=== PATIENT | female | born 1970 | race Caucasian/White ===

== ENCOUNTER 2019-02-17 05:45 | Inpatient (IN) | payer OTHER ==
[~2019-02-17] VITALS: Ht 167.6 cm; Wt 59.3 kg
[2019-02-17] VITALS (26 sets, daily range): BP systolic 90–127; BP diastolic 48–73; PULSE 63–110; RESP 11–22; Ht 167.6 cm; Wt 59.3 kg
[2019-02-17] MEDS ORDERED: LACTATED RINGER'S 1,000 ML IV* ONE (06:00)
[2019-02-17] MEDS ORDERED: GELATIN SIZE 100 SPONGE ONE (06:50)
[2019-02-17] MEDS ORDERED: THROMBIN (BOVINE) 5,000 UNIT VIAL TP ONE (06:50)
[2019-02-17] MEDS ORDERED: BUPIVACAINE 0.5%/EPI (SDV) 30 ML INJ ONE (06:50)
[2019-02-17] MEDS ORDERED: POLYMYXIN/BACITRACIN 1L IRRIG ONE ×2 (06:50→06:59)
[2019-02-17] MEDS ORDERED: HYDR-3027 PO (06:51)
[2019-02-17] MEDS ORDERED: ROCURONIUM 50 MG INJ ONE (07:00)
--- NOTE | 2019-02-17 07:13 | HPN ---
Date/Time of Note Date/Time of Note DATE: 02/17/19 TIME: 07:12 Interval H&P Admission Note Pt. seen H&P reviewed: No system changes JESSICA DIXON MD Feb 17, 2019 07:13
--- NOTE | 2019-02-17 07:28 | PREAC ---
Date/Time of Note Date/Time of Note DATE: 02/17/19 TIME: 07:22 Anesthesia Eval and Record Evaluation Time Pre-Procedure Interview DATE: 02/17/19 TIME: 07:22 Age 48 Sex female NPO: 8 hrs Preoperative diagnosis L2-L3 degenerative Disc Planned procedure L2-L3 Decompression and Discectomy Past Medical History Past Medical History: None Surgery & Anesthesia Issues No known issue Meds Anticoagulation: No Beta Xin within 24 hr: No Reason Beta Xin not given: Pt. not on B-Xin Reported Medications Hydrocodone Bit/Acetaminophen (Vicodin HP 10-300) 1 Each Tablet, 1 TAB PO Q4H PRN for PAIN, TAB 02/17/19 Meds reviewed: Yes Allergies Coded Allergies: No Known Allergy (Unverified , 02/17/19) Allergies Reviewed: Yes Labs/Studies Labs Reviewed: Reviewed by anesthesiologist test: Negative Studies: ECG Pre-procedure Exam Last vitals Vital Signs Date Temp Pulse Resp B/P (MAP) Pulse Ox O2 O2 Flow FiO2 Time Delivery Rate 02/17/19 98.5 63 16 95/56 (69) 97 Room Air 05:30 Airway: Adequate mouth opening, Adequate thyromental dist Mallampati: Mallampati II Teeth: Normal Lung: Normal Heart: Normal ASA Physical Status ASA physical status: 2 Emergency: None Planned Anesthetic General/MAC: ETT Planned Pain Management Parenteral pain med Pre-operative Attestations Prior to commencing anesthesia and surgery, the patient was re-evaluated, there was verification of: *The patient's identity *The results of appropriate recent lab work and preoperative vital signs *The above evaluation not changing prior to induction *Anesthetic plan, risk benefits, alternative and complications discussed with patient/family; questions answered; patient/family understands, accepts and wishes to proceed. JENNIFER PEREZ MD Feb 17, 2019 07:28
[2019-02-17] MEDS ORDERED: MIDAZOLAM 1 MG/ML 2 ML INJ ONE (07:33)
[2019-02-17] MEDS ORDERED: CEFAZOLIN 2 GM/50 ML (PMX) 50 ML IVPB ONE (08:00)
[2019-02-17] MEDS ORDERED: POLYMYXIN/BACITRACIN 1L IRRIG IRR ONE (08:19)
[2019-02-17] MEDS ORDERED: FENTAnyl 50 MCG/ML VIAL ONE (09:06)
[2019-02-17] MEDS ORDERED: hydrALAzine 20 MG INJ ONE (09:18)
[2019-02-17] MEDS ORDERED: HEMOSTATIC MATRIX SYG ZFS ONE (09:28)
[2019-02-17] MEDS ORDERED: morphine 10 MG INJ ONE (09:42)
[2019-02-17] MEDS ORDERED: ONDANSETRON 4 MG INJ ONE (10:17)
[2019-02-17] MEDS ORDERED: METOCLOPRAMIDE 10 MG INJ ONE (10:17)
[2019-02-17] MEDS ORDERED: LIDOCAINE 2% (SDV) 5 ML INJ ONE (10:25)
[2019-02-17] MEDS ORDERED: NEOSTIGMINE 10 MG INJ ONE (10:25)
[2019-02-17] MEDS ORDERED: GLYCOPYRROLATE 0.4 MG INJ ONE (10:25)
[2019-02-17] MEDS ORDERED: PROPOFOL 20 ML ONE (10:25)
[2019-02-17] MEDS ORDERED: CEFAZOLIN 1 GM INJ ONE (10:26)
[2019-02-17] MEDS ORDERED: MEPERIDINE 100 MG INJ ONE (10:49)
[2019-02-17] MEDS ORDERED: NALOXONE (0.4 MG/ML) INJ IV PRN (11:00)
[2019-02-17] MEDS ORDERED: METOCLOPRAMIDE 10 MG INJ IV PRN (11:00)
[2019-02-17] MEDS ORDERED: FENTAnyl 50 MCG/ML VIAL IV PRN (11:00)
[2019-02-17] MEDS ORDERED: NACL 0.9% 3 ML SYG IV SCH (11:00)
[2019-02-17] MEDS ORDERED: HYDROmorphONE 1 MG/5 ML IV SYRINGE IV PRN ×2 (11:00)
[2019-02-17] MEDS ORDERED: ACETAMINOPHEN 325 MG TAB PO PRN (11:00)
[2019-02-17] MEDS ORDERED: DIPHENHYDRAMINE 50 MG INJ IV PRN (11:00)
[2019-02-17] MEDS ORDERED: PROCHLORPERAZINE 10 MG TAB PO PRN (11:00)
[2019-02-17] MEDS ORDERED: MEPERIDINE 25 MG INJ IV PRN (11:00)
[2019-02-17] MEDS ORDERED: HYDROCODONE/APAP (5/325) TAB PO PRN (11:00)
[2019-02-17] MEDS ORDERED: LABETALOL HCL 20MG INJ IV PRN (11:00)
[2019-02-17] MEDS ORDERED: ONDANSETRON 4 MG INJ IV PRN (11:00)
--- NOTE | 2019-02-17 11:01 | PAC ---
Date/Time of Note Date/Time of Note DATE: 02/17/19 TIME: 11:01 Post-Anesthesia Notes Post-Anesthesia Note Last documented vital signs Vital Signs Date Temp Pulse Resp B/P (MAP) Pulse Ox O2 O2 Flow FiO2 Time Delivery Rate 02/17/19 98.8 11:00 02/17/19 63 16 95/56 (69) 97 Room Air 05:30 Activity: WNL Respiratory function: WNL Cardiovascular function: WNL Mental status: Baseline Pain reasonably controlled: Yes Hydration appropriate: Yes Nausea/Vomiting absent: Yes Comments BP:1134/67, P:98, Spo2:100%, T:98,8 JENNIFER PEREZ MD Feb 17, 2019 11:01
--- NOTE | 2019-02-17 11:02 | OPR ---
Date/Time of Note Date/Time of Note DATE: 02/17/19 TIME: 10:55 Operative Report Free Text/Dictation DATE OF OPERATION: 02/17/2019 PREOPERATIVE DIAGNOSES: 1. L2-3 biltaeral spinal stenosis with neurogenic claudication 2. L2-3 right paracentral herniated nucleus pulposus with L3 radiculopathy 3.Prior history of L3-L5 decompression with instrumented fusion POSTOPERATIVE DIAGNOSES: 1. L2-3 biltaeral spinal stenosis with neurogenic claudication 2. L2-3 right paracentral herniated nucleus pulposus with L3 radiculopathy 3.Prior history of L3-L5 decompression with instrumented fusion OPERATION PERFORMED: 1. L2-3 bilateral laminectomy, medial facetectomy, and foraminotomyL 2. L2-3 Right sided microdiskectomy SURGEON: Jessica Dixon MD ANESTHESIA: General endotracheal ESTIMATED BLOOD LOSS: 35 mL SURGICAL INDICATION: The patient is a 48 year-old female who presents with a chronic history of worsening bilateral lower extremity pain. The patient was unable to ambulate significant distances secondary to their pain. Risks, benefits, and alternatives to a decompressive procedure including but not exclusive of risks of bleeding, infection, nerve injury, cauda equina syndrome, iatrogenic instability, dural tear, myocardial infarction, stroke, pulmonary embolism were explained to the patient, and he wished to proceed. She has a prior history of prior L3-L5 laminectomy with instrumented fusion. DESCRIPTION OF TECHNIQUE: The patient was identified in the preoperative area and taken to the operating room. Rapid induction of general endotracheal anesthesia was performed. Patient was given 2 g of cefazolin for prophylaxis. The patient was then placed in the prone position on the Scar table on top of a Donte frame with all bony prominences well padded. The back was prepped and draped in usual sterile manner. Using a spinal needle and intraoperative fluoroscopy, the L2-3 level was clearly identified. The skin was injected using 0.5% Marcaine with epinephrine. Longitudinal midline incision was then created using a 10 blade. Further dissection through soft tissue was performed using electrocautery down to the spinous processes bilaterally. Dissection was taken down the bilateral lamina and over the facet joint capsule. A self-retaining retractor was applied. Again, intraoperative fluoroscopy confirmed the level. A rongeur was used to remove a portion of the L2 spinous process and the interspinous ligaments. We identified the interlaminar window. The microscope was brought into use for microdissection. The high-speed bur was used to thin the L2 lamina. Kerrison rongeurs were then used to resect a the lamina, and a portion of the bilateral medial facets and the bone overlying the foramens. Ligamentum flavum was also resected using the Kerrison rongeurs. Care was taken to protect the thecal sac throughout the decompressive procedure. Attention was then placed on the Right L2-3 microdiskectomy. A nerve root retractor was placed lateral to the right L3 nerve root. The dura and nerve root were gently retracted medially. The extruded fragment was noted. A 15 blade was used to incise the pseudoannulus. The extruded fragment was identified and the disc material was removed to a stable base. Palpation with a ball-tip probe did not reveal any further stenosis in the central, subarticular, or foraminal areas. The bilateral L2 and L3 pedicles were palpated using a torey to ensure a pedicle to pedicle decompression. The exiting L2 nerve root and traversing L3 nerve roots were both directly visualized and noted to be decompressed. The cephalad and caudad extent of the decompression were also confirmed using ball- tip probes and intraoperative fluoroscopy. This procedure took 45 minutes longer than usual due to the scar tissue tissue at the operative site from prior L3-L5 laminectomy with instrumented fusion. The wound was irrigated copiously using normal saline. Meticulous attention was paid toward hemostasis using bipolar cautery, FloSeal and thrombin. Care was taken to remove all FloSeal prior to wound closure. A medium hemovac was placed. The fascia was then closed using 0 Vicryl in interrupted fashion. Subcutaneous tissue was closed using 2-0 Vicryl in interrupted fashion. Skin was closed using a running 4-0 Monocryl stitch. The wound was dressed using Dermabond, sterile gauze and Tegaderm. The patient was returned to the supine position. They were extubated immediately postoperatively and taken to the recovery room in stable condition. Procedure Date: Feb 17, 2019 Preoperative Diagnosis 1. L2-3 biltaeral spinal stenosis with neurogenic claudication 2. L2-3 right paracentral herniated nucleus pulposus with L3 radiculopathy 3.Prior history of L3-L5 decompression with instrumented fusion Postoperative Diagnosis 1. L2-3 biltaeral spinal stenosis with neurogenic claudication 2. L2-3 right paracentral herniated nucleus pulposus with L3 radiculopathy 3.Prior history of L3-L5 decompression with instrumented fusion Operation/Procedure Performed 1. L2-3 bilateral laminectomy, medial facetectomy, and foraminotomyL 2. L2-3 Right sided microdiskectomy Surgeon see signature line It Field Technician None Anesthesia Type: general Estimated Blood Loss: 10 - 50 ml's Transfusion none Specimen L2-3 disk Grafts/Implants none Complications none Pt Condition Post Procedure: stable Procedure Description DESCRIPTION OF TECHNIQUE: The patient was identified in the preoperative area and taken to the operating room. Rapid induction of general endotracheal anesthesia was performed. Patient was given 2 g of cefazolin for prophylaxis. The patient was then placed in the prone position on the Scar table on top of a Donte frame with all bony prominences well padded. The back was prepped and draped in usual sterile manner. Using a spinal needle and intraoperative fluoroscopy, the L2-3 level was clearly identified. The skin was injected using 0.5% Marcaine with epinephrine. Longitudinal midline incision was then created using a 10 blade. Further dissection through soft tissue was performed using electrocautery down to the spinous processes bilaterally. Dissection was taken down the bilateral lamina and over the facet joint capsule. A self-retaining retractor was applied. Again, intraoperative fluoroscopy confirmed the level. A rongeur was used to remove a portion of the L2 spinous process and the interspinous ligaments. We identified the interlaminar window. The microscope was brought into use for microdissection. The high-speed bur was used to thin the L2 lamina. Kerrison rongeurs were then used to resect a the lamina, and a portion of the bilateral medial facets and the bone overlying the foramens. Ligamentum flavum was also resected using the Kerrison rongeurs. Care was taken to protect the thecal sac throughout the decompressive procedure. Attention was then placed on the Right L2-3 microdiskectomy. A nerve root retractor was placed lateral to the right L3 nerve root. The dura and nerve root were gently retracted medially. The extruded fragment was noted. A 15 blade was used to incise the pseudoannulus. The extruded fragment was identified and the disc material was removed to a stable base. Palpation with a ball-tip probe did not reveal any further stenosis in the central, subarticular, or foraminal areas. The bilateral L2 and L3 pedicles were palpated using a torey to ensure a pedicle to pedicle decompression. The exiting L2 nerve root and traversing L3 nerve roots were both directly visualized and noted to be decompressed. The cephalad and caudad extent of the decompression were also confirmed using ball- tip probes and intraoperative fluoroscopy. This procedure took 45 minutes longer than usual due to the scar tissue tissue at the operative site from prior L3-L5 laminectomy with instrumented fusion. The wound was irrigated copiously using normal saline. Meticulous attention was paid toward hemostasis using bipolar cautery, FloSeal and thrombin. Care was taken to remove all FloSeal prior to wound closure. A medium hemovac was placed. The fascia was then closed using 0 Vicryl in interrupted fashion. Subcutaneous tissue was closed using 2-0 Vicryl in interrupted fashion. Skin was closed using a running 4-0 Monocryl stitch. The wound was dressed using Dermabond, sterile gauze and Tegaderm. The patient was returned to the supine position. They were extubated immediately postoperatively and taken to the recovery room in stable condition. JESSICA DIXON MD Feb 17, 2019 11:02
[2019-02-17] MEDS: HYDROmorphONE 0.5 MG/0.5 ML SYG IV PRN ×4 (12:26→21:31)
[2019-02-17] MEDS: CEFAZOLIN 1 GM/50 ML (PMX) 50 ML IVPB SCH ×3 (12:26→23:46)
--- NOTE | 2019-02-17 13:31 | CONS ---
Assessment/Plan Assessment/Plan Problems: (1) S/P lumbar microdiscectomy Onset Date: ~ 02/17/2019 Status: Acute Comment: Intraoperatively doing well at this time. Continue with routine postoperative care. Expect good rehabilitation potential in this very young woman (2) S/P lumbar laminectomy Onset Date: ~ 02/17/2019 Status: Acute Comment: As above. (3) Chronic pain syndrome Status: Chronic Comment: Please note that she had previously been tried on gabapentin which was not successful for her. Her home medications have been Vicodin and Flexeril and ibuprofen she has been off the ibuprofen for a week and she has been out of the Flexeril Consultation Date/Type/Reason Admit Date/Time Feb 17, 2019 at 05:45 Date of Consultation: Feb 17, 2019 Type of Consult Internal medicine Reason for Consultation Postoperative assistance after left lumbar spine microdiscectomy and bilateral laminectomy Requesting Provider: JESSICA DIXON MD Date/Time of Note DATE: 02/17/19 TIME: 13:26 Hx of Present Illness Pleasant 48-year-old right-handed [place] born female admitted for back surgery. She has had a total of 4 prior surgeries which includes 1 hardware removal. She has history of chronic low back pain. She is seen postoperatively on the floor reports that this was the best of all of her surgeries in terms of comfort. Constitutional: no complaints (No fevers chills or sweats) Eyes: no complaints ENT: no complaints Respiratory: no complaints Cardiovascular: no complaints Gastrointestinal: no complaints Genitourinary: no complaints Musculoskeletal: back pain Skin: no complaints Neurologic: other (Bilateral sciatica preop) Past Medical History Medical History: other (Osteoarthritis of the lumbar spine; cervical spine disease) Home Meds Reported Medications Hydrocodone Bit/Acetaminophen (Vicodin HP 10-300) 1 Each Tablet, 1 TAB PO Q4H PRN for PAIN, TAB 02/17/19 Medications Home medications-Vicodin as needed; Flexeril as needed ibuprofen as needed Current Medications Acetaminophen/ Hydrocodone Bitart ([place] (5/325)) 1 tab Q4H PRN PO .PAIN 1-5; Start 02/17/19 at 11:00 Acetaminophen/ Hydrocodone Bitart ([place] (5/325)) 2 tab Q4H PRN PO .PAIN 6-10; Start 02/17/19 at 11:00 Cefazolin Sodium 50 ml @ 100 mls/hr Q6 IVPB Last administered on 02/17/19at 12:26; Admin Dose 100 MLS/HR; Start 02/17/19 at 12:00; Stop 02/18/19 at 06:29 Prochlorperazine (Compazine) 10 mg Q4H PRN PO NAUSEA/VOMITING; Start 02/17/19 at 11:00 Ondansetron HCl (Zofran Inj) 4 mg Q6H PRN IV NAUSEA/VOMITING; Start 02/17/19 at 11:00 Al Hydrox/Mg Hydrox/Simethicone (Mag-Al Plus) 15 ml Q4H PRN PO .CONSTIPATION; Start 02/17/19 at 11:00 Docusate Sodium (Colace) 100 mg BID PO ; Start 02/18/19 at 09:00 Acetaminophen (Tylenol Tab) 650 mg Q4H PRN PO TEMP GREATER THAN 101F OR YOUNG; Start 02/17/19 at 11:00 IV Flush (NS 3 ml) 3 ml PER PROTOCOL IV ; Start 02/17/19 at 11:00 Naloxone HCl (Narcan) 0.2 mg Q2M PRN IV RR 8 BREATHS/MIN OR LESS; Start 02/17/19 at 11:00 Hydromorphone HCl (Dilaudid) 0.5 mg Q3H PRN IV SEVERE PAIN LEVEL 7-10 Last administered on 02/17/19at 12:26; Admin Dose 0.5 MG; Start 02/17/19 at 11:00 Hydromorphone HCl (Dilaudid) 0.2 mg PACU PRN IV MILD PAIN 1-3; Start 02/17/19 at 11:00; Stop 02/17/19 at 15:00 Hydromorphone HCl (Dilaudid) 0.4 mg PACU PRN IV MOD PAIN 4-6; Start 02/17/19 at 11:00; Stop 02/17/19 at 15:00 Fentanyl (Sublimaze) 25 mcg PACU ORDER PRN IV MILD PAIN 1-3; Start 02/17/19 at 11:00; Stop 02/17/19 at 15:00 Ondansetron HCl (Zofran Inj) 4 mg PACU ORDER PRN IV NAUSEA/VOMITING; Start 02/17/19 at 11:00; Stop 02/17/19 at 15:00 Metoclopramide HCl (Reglan) 10 mg PACU ORDER PRN IV NAUSEA/VOMITING; Start 02/17/19 at 11:00; Stop 02/17/19 at 15:00 Labetalol HCl (Labetalol) 5 mg PACU ORDER PRN IV HIGH BLOOD PRESSURE; Start 02/17/19 at 11:00; Stop 02/17/19 at 15:00 Meperidine HCl (Demerol) 25 mg PACU ORDER PRN IV .RIGORS; Start 02/17/19 at 11:00; Stop 02/17/19 at 15:00 Diphenhydramine HCl (Benadryl) 25 mg PACU ORDER PRN IV .PRURITUS; Start 02/17/19 at 11:00; Stop 02/17/19 at 15:00 Allergies: Coded Allergies: No Known Allergy (Unverified , 02/17/19) Past Surgical History Past Surgical Hx: other (Status post hysterectomy; status post vocal cord polypectomy; status post lumbar spine fusion x2; status post hardware removal from lumbar spine; status post silicone breast augmentation bilaterally) Family History Significant Family History: no pertinent family hx Social History Born in [facility] and raised there. Has lived in [facility] for several decades. 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 Alcohol Use: occasionally (Red wine consumption on a daily basis) Smoking Status: Former smoker (Quit smoking 7 months ago) Drug Use: none Exam/Review of Systems Exam Vitals Vital Signs Date Temp Pulse Resp B/P (MAP) Pulse Ox O2 O2 Flow FiO2 Time Delivery Rate 02/17/19 97.1 74 18 95/51 (66) 100 12:26 02/17/19 Nasal 2.0 12:01 Cannula Constitutional: alert, oriented Head: normocephalic, atraumatic Eyes: nl conjunctiva, EOMI, nl lids, nl sclera, PERRL ENMT: nl external ears & nose, nl lips & teeth, nl nasal mucosa & septum, mucosa pink and moist Neck: supple, non-tender Respiratory: clear to auscultation, normal air movement Cardiovascular: regular rate and rhythm, nl pulses Gastrointestinal: soft, nl liver, spleen, non-tender Extremities: normal pulses Neurological: 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 intact, nl mental status, nl speech, nl strength, other (Moving her feet without issue) Skin: nl turgor, rash or lesions Medications Medication Current Medications Acetaminophen/ Hydrocodone Bitart ([place]land (5/325)) 1 tab Q4H PRN PO .PAIN 1-5; Start 02/17/19 at 11:00 Acetaminophen/ Hydrocodone Bitart ([place] (5/325)) 2 tab Q4H PRN PO .PAIN 6-10; Start 02/17/19 at 11:00 Cefazolin Sodium 50 ml @ 100 mls/hr Q6 IVPB Last administered on 02/17/19at 12:26; Admin Dose 100 MLS/HR; Start 02/17/19 at 12:00; Stop 02/18/19 at 06:29 Prochlorperazine (Compazine) 10 mg Q4H PRN PO NAUSEA/VOMITING; Start 02/17/19 at 11:00 Ondansetron HCl (Zofran Inj) 4 mg Q6H PRN IV NAUSEA/VOMITING; Start 02/17/19 at 11:00 Al Hydrox/Mg Hydrox/Simethicone (Mag-Al Plus) 15 ml Q4H PRN PO .CONSTIPATION; Start 02/17/19 at 11:00 Docusate Sodium (Colace) 100 mg BID PO ; Start 02/18/19 at 09:00 Acetaminophen (Tylenol Tab) 650 mg Q4H PRN PO TEMP GREATER THAN 101F OR YOUNG; Start 02/17/19 at 11:00 IV Flush (NS 3 ml) 3 ml PER PROTOCOL IV ; Start 02/17/19 at 11:00 Naloxone HCl (Narcan) 0.2 mg Q2M PRN IV RR 8 BREATHS/MIN OR LESS; Start 02/17/19 at 11:00 Hydromorphone HCl (Dilaudid) 0.5 mg Q3H PRN IV SEVERE PAIN LEVEL 7-10 Last administered on 02/17/19at 12:26; Admin Dose 0.5 MG; Start 02/17/19 at 11:00 Hydromorphone HCl (Dilaudid) 0.2 mg PACU PRN IV MILD PAIN 1-3; Start 02/17/19 at 11:00; Stop 02/17/19 at 15:00 Hydromorphone HCl (Dilaudid) 0.4 mg PACU PRN IV MOD PAIN 4-6; Start 02/17/19 at 11:00; Stop 02/17/19 at 15:00 Fentanyl (Sublimaze) 25 mcg PACU ORDER PRN IV MILD PAIN 1-3; Start 02/17/19 at 11:00; Stop 02/17/19 at 15:00 Ondansetron HCl (Zofran Inj) 4 mg PACU ORDER PRN IV NAUSEA/VOMITING; Start 02/17/19 at 11:00; Stop 02/17/19 at 15:00 Metoclopramide HCl (Reglan) 10 mg PACU ORDER PRN IV NAUSEA/VOMITING; Start 02/17/19 at 11:00; Stop 02/17/19 at 15:00 Labetalol HCl (Labetalol) 5 mg PACU ORDER PRN IV HIGH BLOOD PRESSURE; Start 02/17/19 at 11:00; Stop 02/17/19 at 15:00 Meperidine HCl (Demerol) 25 mg PACU ORDER PRN IV .RIGORS; Start 02/17/19 at 11:00; Stop 02/17/19 at 15:00 Diphenhydramine HCl (Benadryl) 25 mg PACU ORDER PRN IV .PRURITUS; Start 02/17/19 at 11:00; Stop 02/17/19 at 15:00 LOLITA SOW MD Feb 17, 2019 13:31
[2019-02-17] MEDS: HYDROCODONE/APAP (5/325) TAB PO PRN ×3 (14:34→23:46)
[2019-02-17] MEDS: ONDANSETRON 4 MG INJ IV PRN (16:56)
--- NOTE | 2019-02-17 18:29 | CONS ---
Assessment/Plan Assessment/Plan Assessment/Plan (Daily) Post op med consult dict She is in overall good health IV, maintenance started Will follow Consultation Date/Type/Reason Admit Date/Time Feb 17, 2019 at 05:45 Date/Time of Note DATE: 02/17/19 TIME: 18:28 Past Medical History Medical History: other (Osteoarthritis of the lumbar spine; cervical spine disease) Home Meds Reported Medications Hydrocodone Bit/Acetaminophen (Vicodin HP 10-300) 1 Each Tablet, 1 TAB PO Q4H PRN for PAIN, TAB 02/17/19 Medications Current Medications Acetaminophen/ Hydrocodone Bitart (Julian (5/325)) 1 tab Q4H PRN PO .PAIN 1-5; Start 02/17/19 at 11:00 Acetaminophen/ Hydrocodone Bitart (Julian (5/325)) 2 tab Q4H PRN PO .PAIN 6-10 Last administered on 02/17/19at 14:34; Admin Dose 2 TAB; Start 02/17/19 at 11:00 Cefazolin Sodium 50 ml @ 100 mls/hr Q6 IVPB Last administered on 02/17/19at 18:18; Admin Dose 100 MLS/HR; Start 02/17/19 at 12:00; Stop 02/18/19 at 06:29 Prochlorperazine (Compazine) 10 mg Q4H PRN PO NAUSEA/VOMITING; Start 02/17/19 at 11:00 Ondansetron HCl (Zofran Inj) 4 mg Q6H PRN IV NAUSEA/VOMITING Last administered on 02/17/19at 16:56; Admin Dose 4 MG; Start 02/17/19 at 11:00 Al Hydrox/Mg Hydrox/Simethicone (Mag-Al Plus) 15 ml Q4H PRN PO .CONSTIPATION; Start 02/17/19 at 11:00 Docusate Sodium (Colace) 100 mg BID PO ; Start 02/18/19 at 09:00 Acetaminophen (Tylenol Tab) 650 mg Q4H PRN PO TEMP GREATER THAN 101F OR YOUNG Last administered on 02/17/19at 17:03; Admin Dose 650 MG; Start 02/17/19 at 11:00 IV Flush (NS 3 ml) 3 ml PER PROTOCOL IV ; Start 02/17/19 at 11:00 Naloxone HCl (Narcan) 0.2 mg Q2M PRN IV RR 8 BREATHS/MIN OR LESS; Start 02/17/19 at 11:00 Hydromorphone HCl (Dilaudid) 0.5 mg Q3H PRN IV SEVERE PAIN LEVEL 7-10 Last adm inistered on 02/17/19at 15:39; Admin Dose 0.5 MG; Start 02/17/19 at 11:00 Sodium Chloride 1,000 ml @ 80 mls/hr [id number] IV ; Start 02/17/19 at 18:30; Status UNV Allergies: Coded Allergies: No Known Allergy (Unverified , 02/17/19) Past Surgical History Past Surgical Hx: other (Status post hysterectomy; status post vocal cord polypectomy; status post lumbar spine fusion x2; status post hardware removal from lumbar spine; status post silicone breast augmentation bilaterally) Social History Alcohol Use: occasionally (Red wine consumption on a daily basis) Smoking Status: Former smoker (Quit smoking 7 months ago) Drug Use: none Exam/Review of Systems Exam Vitals Vital Signs Date Temp Pulse Resp B/P (MAP) Pulse Ox O2 O2 Flow FiO2 Time Delivery Rate 02/17/19 77 16 107/58 99 Nasal 2.0 18:08 (74) Cannula 02/17/19 97.1 12:26 Results Results 24hrs Laboratory Tests Test 02/17/19 13:14 Hepatitis B Surface Antigen NEGATIVE Hepatitis C Antibody NEGATIVE HIV (1&2) Antibody NEGATIVE Medications Medication Current Medications Acetaminophen/ Hydrocodone Bitart (Julian (5/325)) 1 tab Q4H PRN PO .PAIN 1-5; Start 02/17/19 at 11:00 Acetaminophen/ Hydrocodone Bitart (Julian (5/325)) 2 tab Q4H PRN PO .PAIN 6-10 Last administered on 02/17/19at 14:34; Admin Dose 2 TAB; Start 02/17/19 at 11:00 Cefazolin Sodium 50 ml @ 100 mls/hr Q6 IVPB Last administered on 02/17/19at 18:18; Admin Dose 100 MLS/HR; Start 02/17/19 at 12:00; Stop 02/18/19 at 06:29 Prochlorperazine (Compazine) 10 mg Q4H PRN PO NAUSEA/VOMITING; Start 02/17/19 at 11:00 Ondansetron HCl (Zofran Inj) 4 mg Q6H PRN IV NAUSEA/VOMITING Last administered on 02/17/19at 16:56; Admin Dose 4 MG; Start 02/17/19 at 11:00 Al Hydrox/Mg Hydrox/Simethicone (Mag-Al Plus) 15 ml Q4H PRN PO .CONSTIPATION; Start 02/17/19 at 11:00 Docusate Sodium (Colace) 100 mg BID PO ; Start 02/18/19 at 09:00 Acetaminophen (Tylenol Tab) 650 mg Q4H PRN PO TEMP GREATER THAN 101F OR YOUNG Last administered on 02/17/19at 17:03; Admin Dose 650 MG; Start 02/17/19 at 11:00 IV Flush (NS 3 ml) 3 ml PER PROTOCOL IV ; Start 02/17/19 at 11:00 Naloxone HCl (Narcan) 0.2 mg Q2M PRN IV RR 8 BREATHS/MIN OR LESS; Start 02/17/19 at 11:00 Hydromorphone HCl (Dilaudid) 0.5 mg Q3H PRN IV SEVERE PAIN LEVEL 7-10 Last ad ministered on 02/17/19at 15:39; Admin Dose 0.5 MG; Start 02/17/19 at 11:00 Sodium Chloride 1,000 ml @ 80 mls/hr [id number] IV ; Start 02/17/19 at 18:30; Status UNTIAGO ANDERSON MD Feb 17, 2019 18:29
[2019-02-17] MEDS: SOD CHLORIDE 0.9% 1,000 ML IV SCH (19:43)
--- NOTE | 2019-02-17 19:47 | CONS ---
DATE OF ADMISSION: 02/17/2019 DATE OF CONSULTATION: 02/17/2019 Thank you very much for allowing me to evaluate this 48-year-old female who just underwent a lumbar b ack surgery. HISTORICAL EVENTS: As you all know, this patient has chronic low back pain beginning approximately 1 8 years ago. She has had prior lumbar back surgeries initially in 2000, 2002 with subsequent removal of hardware in 2003 and a fusion in 2014. Because of continued back pain, she elected to proceed wi th surgical intervention given little help from conservative therapy. Postoperatively, she notes mod est back pain, but denies cough, wheezing, shortness of breath, nausea, vomiting, abdominal or chest pain. PAST MEDICAL HISTORY: No history of coronary artery disease or diabetes, hypertension, undergoing re cent cardiology eval circa 1 year ago and was told no abnormalities were present. MEDICATIONS PRIOR TO ADMISSION: Include Vicodin and cyclobenzaprine. ALLERGIES: NONE. SOCIAL HISTORY: She occasionally drinks alcohol, does not smoke. FAMILY HISTORY: Noncontributory. PHYSICAL EXAMINATION: GENERAL: White female in no acute distress. VITAL SIGNS: BP 126/78, pulse 72, respirations were 18. She was afebrile. EYES: Extraocular muscles were full. NOSE, MOUTH, AND THROAT: Normal. NECK: Supple. There was no jugular venous distention, thyroid enlargement or adenopathy. Carotids 2+. LUNGS: Clear. HEART: Rhythm was regular, no murmur. No third or fourth sound. ABDOMEN: Nontender. Liver and spleen were not palpable. No mass or tenderness were noted. EXTREMITIES: No edema, no calf tenderness. IMPRESSION: 1. Stable postop lumbar back surgery. 2. Over mares, quite healthy. We will evaluate daily for signs and symptoms of thromboembolic diseas e. Dictated By: TIAGO FARMER MD MR/NTS Conf#: [id number] DID#: [id number] CC: JESSICA DIXON MD;*EndCC*
[2019-02-18 00:10] VITALS: BP 98/58; PULSE 70; RESP 19
[2019-02-18] MEDS: HYDROCODONE/APAP (5/325) TAB PO PRN ×5 (03:51→20:14)
[2019-02-18] MEDS: ONDANSETRON 4 MG INJ IV PRN ×2 (03:51→20:07)
[2019-02-18] MEDS: SOD CHLORIDE 0.9% 1,000 ML IV SCH ×2 (05:25→23:24)
[2019-02-18] MEDS: HYDROmorphONE 0.5 MG/0.5 ML SYG IV PRN ×6 (05:25→22:05)
[2019-02-18] MEDS: CEFAZOLIN 1 GM/50 ML (PMX) 50 ML IVPB SCH (05:25)
--- NOTE | 2019-02-18 07:50 | CONS ---
Assessment/Plan Assessment/Plan Assessment/Plan (Daily) 1. Doing well post op lumbar back surgery 2. Urine frequency with no bingham placed, angel check post void bladder residual 3. Labs rev Consultation Date/Type/Reason Admit Date/Time Feb 17, 2019 at 05:45 Initial Consult Date 02/17/19 Requesting Provider: JESSICA DIXON MD Date/Time of Note DATE: 02/18/19 TIME: 07:48 Detailed Summary Respiratory: No cough, No shortness of breath Cardiovascular: No chest pain Gastrointestinal: no complaints Genitourinary: other (frrequency without dysuria) Musculoskeletal: back pain (moderate with numbness left thigh) Exam/Review of Systems Exam Vitals Vital Signs Date Temp Pulse Resp B/P (MAP) Pulse Ox O2 O2 Flow FiO2 Time Delivery Rate 02/18/19 98.8 70 19 98/58 (71) 98 00:10 02/17/19 Nasal 2.0 18:08 Cannula Intake and Output 02/17/19 02/17/19 02/18/19 1515:00 23:00 07:00 IntakeIntake Total 1110 ml 760 ml 1300 ml OutputOutput Total 390 ml 400 ml 400 ml BalanceBalance 720 ml 360 ml 900 ml Neck: No jvd Respiratory: clear to auscultation Cardiovascular: regular rate and rhythm Gastrointestinal: soft Extremities: No edema, No tenderness Results Result Diagram: 02/18/1943002/18/19 0431 Results 24hrs Laboratory Tests Test 02/17/19 13:14 02/18/19 04:31 Hepatitis B Surface Antigen NEGATIVE Hepatitis C Antibody NEGATIVE HIV (1&2) Antibody NEGATIVE Hemoglobin 11.1 L Hematocrit 32.4 L Sodium Level 140 Potassium Level 3.8 Chloride Level 110 Carbon Dioxide Level 22 Anion Gap 8 Blood Urea Nitrogen 11 Creatinine 0.66 Est Glomerular Filtrat Rate mL/min > 60 Glucose Level 98 Calcium Level 8.2 L Medications Medication Current Medications Acetaminophen/ Hydrocodone Bitart ([place] (5/325)) 1 tab Q4H PRN PO .PAIN 1-5; Start 02/17/19 at 11:00 Acetaminophen/ Hydrocodone Bitart ([place] (5/325)) 2 tab Q4H PRN PO .PAIN 6-10 Last administered on 02/18/19at 07:46; Admin Dose 2 TAB; Start 02/17/19 at 11:00 Prochlorperazine (Compazine) 10 mg Q4H PRN PO NAUSEA/VOMITING Last administered on 02/17/19 19:48; Admin Dose 10 MG; Start 02/17/19 at 11:00 Ondansetron HCl (Zofran Inj) 4 mg Q6H PRN IV NAUSEA/VOMITING Last administered on 02/18/19at 03:51; Admin Dose 4 MG; Start 02/17/19 at 11:00 Al Hydrox/Mg Hydrox/Simethicone (Mag-Al Plus) 15 ml Q4H PRN PO .CONSTIPATION; Start 02/17/19 at 11:00 Docusate Sodium (Colace) 100 mg BID PO ; Start 02/18/19 at 09:00 Acetaminophen (Tylenol Tab) 650 mg Q4H PRN PO TEMP GREATER THAN 101F OR YOUNG Last administered on 02/17/19 17:03; Admin Dose 650 MG; Start 02/17/19 at 11:00 IV Flush (NS 3 ml) 3 ml PER PROTOCOL IV ; Start 02/17/19 at 11:00 Naloxone HCl (Narcan) 0.2 mg Q2M PRN IV RR 8 BREATHS/MIN OR LESS; Start 02/17/19 at 11:00 Hydromorphone HCl (Dilaudid) 0.5 mg Q3H PRN IV SEVERE PAIN LEVEL 7-10 Last administered on 02/18/19 05:25; Admin Dose 0.5 MG; Start 02/17/19 at 11:00 Sodium Chloride 1,000 ml @ 80 mls/hr [id number] IV Last administered on 02/18/19 05:25; Admin Dose 80 MLS/HR; Start 02/17/19 at 18:30 TIAGO FARMER MD Feb 18, 2019 07:50
[2019-02-18 07:55] VITALS: BP 95/56; PULSE 58; RESP 19
[2019-02-18] MEDS: DOCUSATE SODIUM 100 MG CAP PO SCH ×2 (08:03→19:59)
--- NOTE | 2019-02-18 12:39 | PDOCDIS ---
Discharge Instructions CONDITION [id number] Patient Condition: [id number] Good HOME CARE INSTRUCTIONS: [id number] Diet Instructions: [id number] Regular ACTIVITY: [id number] Activity Restrictions: [id number] Avoid heavy lifting [id number] Bathing Restrictions: [id number] Shower FOLLOW UP/APPOINTMENTS Follow-up Plan Follow-up with Dr. Dixon in 2 weeks JESSICA DIXON MD Feb 18, 2019 12:39
--- NOTE | 2019-02-18 12:55 | CONS ---
Consultation Date/Type/Reason Admit Date/Time Feb 17, 2019 at 05:45 Initial Consult Date 02/17/19 Requesting Provider: JESSICA DIXON MD Date/Time of Note DATE: 02/18/19 TIME: 12:51 24 HR Interval Summary Free Text/Dictation S: 48 yo F POD#1 s/p L2-3 decompression for spinal stenosis above prior fusion. Reports left sided leg numbness and weakness. Patient not cleared by physical therapy. Pain under control w/ PO pain medications. She is tolerating a regular diet. O: Vital Signs Date Temp Pulse Resp B/P (MAP) Pulse Ox O2 O2 Flow FiO2 Time Delivery Rate 02/18/19 97.5 58 19 95/56 (69) 98 07:55 02/17/19 Nasal 2.0 18:08 Cannula Gen: AAOx3, NAD Spine: Dressing C/D/I, 4/5 b/l TA/GS/EHL, 3/5 b/l HF and KE, mild decreased sensation in left compared to right leg. Labs: Laboratory Tests 02/18/19 04:31 A/P:48 yo F POD#1 s/p L2-3 decompression for spinal stenosis above prior fusion 1. Patient with weakness and left leg numbness. Will order STAT MRI L-spine w/ and w/o contrast to evaluate post surgical decompression. 2. Continue PT 3. Appreciate medicine recs Exam/Review of Systems Exam Vitals Vital Signs Date Temp Pulse Resp B/P (MAP) Pulse Ox O2 O2 Flow FiO2 Time Delivery Rate 02/18/19 97.5 58 19 95/56 (69) 98 07:55 02/17/19 Nasal 2.0 18:08 Cannula Intake and Output 02/17/19 02/17/19 02/18/19 1515:00 23:00 07:00 IntakeIntake Total 1110 ml 760 ml 1300 ml OutputOutput Total 390 ml 400 ml 400 ml BalanceBalance 720 ml 360 ml 900 ml Results Result Diagram: 02/18/191 02/18/19 0431 Results 24hrs Laboratory Tests Test 02/17/19 13:14 02/18/19 04:31 Hepatitis B Surface Antigen NEGATIVE Hepatitis C Antibody NEGATIVE HIV (1&2) Antibody NEGATIVE Hemoglobin 11.1 L Hematocrit 32.4 L Sodium Level 140 Potassium Level 3.8 Chloride Level 110 Carbon Dioxide Level 22 Anion Gap 8 Blood Urea Nitrogen 11 Creatinine 0.66 Est Glomerular Filtrat Rate mL/min > 60 Glucose Level 98 Calcium Level 8.2 L Medications Medication Current Medications Acetaminophen/ Hydrocodone Bitart ([place] (5/325)) 1 tab Q4H PRN PO .PAIN 1-5; Start 02/17/19 at 11:00 Acetaminophen/ Hydrocodone Bitart ([place] (5/325)) 2 tab Q4H PRN PO .PAIN 6-10 Last administered on 02/18/19 07:46; Admin Dose 2 TAB; Start 02/17/19 at 11:00 Prochlorperazine (Compazine) 10 mg Q4H PRN PO NAUSEA/VOMITING Last administered on 02/17/19 19:48; Admin Dose 10 MG; Start 02/17/19 at 11:00 Ondansetron HCl (Zofran Inj) 4 mg Q6H PRN IV NAUSEA/VOMITING Last administered on 02/18/19 03:51; Admin Dose 4 MG; Start 02/17/19 at 11:00 Al Hydrox/Mg Hydrox/Simethicone (Mag-Al Plus) 15 ml Q4H PRN PO .CONSTIPATION; Start 02/17/19 at 11:00 Docusate Sodium (Colace) 100 mg BID PO Last administered on 02/18/19 08:03; Admin Dose 100 MG; Start 02/18/19 at 09:00 Acetaminophen (Tylenol Tab) 650 mg Q4H PRN PO TEMP GREATER THAN 101F OR YOUNG Last administered on 02/17/19 17:03; Admin Dose 650 MG; Start 02/17/19 at 11:00 IV Flush (NS 3 ml) 3 ml PER PROTOCOL IV ; Start 02/17/19 at 11:00 Naloxone HCl (Narcan) 0.2 mg Q2M PRN IV RR 8 BREATHS/MIN OR LESS; Start 02/17/19 at 11:00 Hydromorphone HCl (Dilaudid) 0.5 mg Q3H PRN IV SEVERE PAIN LEVEL 7-10 Last administered on 02/18/19 12:24; Admin Dose 0.5 MG; Start 02/17/19 at 11:00 Sodium Chloride 1,000 ml @ 60 mls/hr [id number] IV Last administered on 4/9/19at 05:25; Admin Dose 80 MLS/HR; Start 02/17/19 at 18:30 JESSICA DIXON MD Feb 18, 2019 12:55
[2019-02-18 14:21] VITALS: BP 118/62; PULSE 68; RESP 19
[2019-02-18] MEDS ORDERED: DEXAMETHASONE 10 MG/ML 1 ML INJ IV ONE (19:30)
[2019-02-18 20:27] VITALS: BP 139/65; PULSE 67; RESP 20
[2019-02-18] MEDS ORDERED: HYDROmorphONE 0.5 MG/0.5 ML SYG IV STA (21:09)
[2019-02-19] MEDS: HYDROCODONE/APAP (5/325) TAB PO PRN ×5 (00:16→22:52)
[2019-02-19] MEDS: ONDANSETRON 4 MG INJ IV PRN ×2 (01:38→22:40)
[2019-02-19] MEDS: HYDROmorphONE 0.5 MG/0.5 ML SYG IV PRN ×6 (01:38→20:39)
[2019-02-19] MEDS ORDERED: DEXAMETHASONE 10 MG/ML 1 ML INJ IV ONE (02:00)
[2019-02-19 02:30] VITALS: BP 135/71; PULSE 66; RESP 18
[2019-02-19 07:46] VITALS: BP 138/71; PULSE 75; RESP 18
--- NOTE | 2019-02-19 08:03 | PN ---
Date/Time of Note Date/Time of Note DATE: 02/19/19 TIME: 08:01 Assessment/Plan VTE Prophylaxis Risk score (from [facility])>0 risk: 5 SCD applied (from [facility]): Yes Pharmacological prophylaxis: NA/contraindicated Pharm contraindication: bleeding Lines/Catheters IV Catheter Type (from [facility]): Peripheral IV Urinary Cath still in place: No Assessment/Plan Assessment/Plan 1. Post op lumbar back surgery, doing well 2. Labs rev 3. Cont PT Result Diagram: 02/19/1944002/19/191 Results 24hrs Laboratory Tests Test 02/19/19 04:41 White Blood Count 8.9 Red Blood Count 3.45 L Hemoglobin 11.4 L Hematocrit 33.8 L Mean Corpuscular Volume 98.0 Mean Corpuscular Hemoglobin 33.0 Mean Corpuscular Hemoglobin Concent 33.7 Red Cell Distribution Width 12.5 Platelet Count 202 Mean Platelet Volume 10.3 Immature Granulocytes % 0.500 H Neutrophils % 89.9 H Lymphocytes % 6.7 L Monocytes % 2.8 Eosinophils % 0.0 Basophils % 0.1 Nucleated Red Blood Cells % 0.0 Immature Granulocytes # 0.040 H Neutrophils # 8.0 H Lymphocytes # 0.6 L Monocytes # 0.3 Eosinophils # 0.0 Basophils # 0.0 Nucleated Red Blood Cells # 0.0 Sodium Level 139 Potassium Level 4.7 Chloride Level 108 Carbon Dioxide Level 23 Anion Gap 8 Blood Urea Nitrogen 8 Creatinine 0.68 Est Glomerular Filtrat Rate mL/min > 60 Glucose Level 152 Calcium Level 9.3 Phosphorus Level 3.4 Magnesium Level 2.1 Subjective 24 Hr Interval Summary Respiratory: No shortness of breath Cardiovascular: No chest pain, No lightheadedness Gastrointestinal: No no complaints Genitourinary: no complaints Musculoskeletal: back pain (is less and legs feel stronger) Exam/Review of Systems Exam Vitals Vital Signs Date Temp Pulse Resp B/P (MAP) Pulse Ox O2 O2 Flow FiO2 Time Delivery Rate 02/19/19 98.0 75 18 138/71 95 Room Air 07:46 (93) 02/17/19 2.0 18:08 Intake and Output 02/18/19 02/18/19 02/19/19 1515:00 23:00 07:00 IntakeIntake Total 960 ml 360 ml OutputOutput Total 40 ml 0 ml BalanceBalance 920 ml 360 ml Neck: No jvd Respiratory: clear to auscultation Cardiovascular: regular rate and rhythm Gastrointestinal: soft Extremities: No tenderness Results Results 24hrs Laboratory Tests Test 02/19/19 04:41 White Blood Count 8.9 Red Blood Count 3.45 L Hemoglobin 11.4 L Hematocrit 33.8 L Mean Corpuscular Volume 98.0 Mean Corpuscular Hemoglobin 33.0 Mean Corpuscular Hemoglobin Concent 33.7 Red Cell Distribution Width 12.5 Platelet Count 202 Mean Platelet Volume 10.3 Immature Granulocytes % 0.500 H Neutrophils % 89.9 H Lymphocytes % 6.7 L Monocytes % 2.8 Eosinophils % 0.0 Basophils % 0.1 Nucleated Red Blood Cells % 0.0 Immature Granulocytes # 0.040 H Neutrophils # 8.0 H Lymphocytes # 0.6 L Monocytes # 0.3 Eosinophils # 0.0 Basophils # 0.0 Nucleated Red Blood Cells # 0.0 Sodium Level 139 Potassium Level 4.7 Chloride Level 108 Carbon Dioxide Level 23 Anion Gap 8 Blood Urea Nitrogen 8 Creatinine 0.68 Est Glomerular Filtrat Rate mL/min > 60 Glucose Level 152 Calcium Level 9.3 Phosphorus Level 3.4 Magnesium Level 2.1 Medications Medication Current Medications Acetaminophen/ Hydrocodone Bitart ([place] (5/325)) 1 tab Q4H PRN PO .PAIN 1-5; Start 02/17/19 at 11:00 Acetaminophen/ Hydrocodone Bitart ([place] (5/325)) 2 tab Q4H PRN PO .PAIN 6-10 Last administered on 02/19/19at 07:15; Admin Dose 2 TAB; Start 02/17/19 at 11:00 Prochlorperazine (Compazine) 10 mg Q4H PRN PO NAUSEA/VOMITING Last administered on 02/17/19at 19:48; Admin Dose 10 MG; Start 02/17/19 at 11:00 Ondansetron HCl (Zofran Inj) 4 mg Q6H PRN IV NAUSEA/VOMITING Last administered on 02/19/19at 01:38; Admin Dose 4 MG; Start 02/17/19 at 11:00 Al Hydrox/Mg Hydrox/Simethicone (Mag-Al Plus) 15 ml Q4H PRN PO .CONSTIPATION; Start 02/17/19 at 11:00 Docusate Sodium (Colace) 100 mg BID PO Last administered on 02/18/19 19:59; Admin Dose 100 MG; Start 02/18/19 at 09:00 Acetaminophen (Tylenol Tab) 650 mg Q4H PRN PO TEMP GREATER THAN 101F OR YOUNG Last administered on 02/17/19 17:03; Admin Dose 650 MG; Start 02/17/19 at 11:00 IV Flush (NS 3 ml) 3 ml PER PROTOCOL IV ; Start 02/17/19 at 11:00 Naloxone HCl (Narcan) 0.2 mg Q2M PRN IV RR 8 BREATHS/MIN OR LESS; Start 02/17/19 at 11:00 Hydromorphone HCl (Dilaudid) 0.5 mg Q3H PRN IV SEVERE PAIN LEVEL 7-10 Last administered on 02/19/19 07:15; Admin Dose 0.5 MG; Start 02/17/19 at 11:00 Sodium Chloride 1,000 ml @ 60 mls/hr [id number] IV Last administered on 02/18/19 05:25; Admin Dose 80 MLS/HR; Start 02/17/19 at 18:30 TIAGO FARMER MD Feb 19, 2019 08:03
[2019-02-19] MEDS: DOCUSATE SODIUM 100 MG CAP PO SCH ×2 (08:07→20:38)
[2019-02-19] MEDS: METHOCARBAMOL 500 MG TAB PO PRN ×2 (14:24→22:40)
[2019-02-19 15:27] VITALS: BP 116/72; PULSE 78; RESP 18
[2019-02-19 20:06] VITALS: BP 108/63; PULSE 77; RESP 20
[2019-02-19] MEDS: AL HYDROX/MG HYDROX/SIMETH 30 ML CUP PO PRN (20:44)
[2019-02-19] MEDS: ZOLPIDEM 5 MG TAB PO PRN (23:37)
[2019-02-20] MEDS: HYDROmorphONE 0.5 MG/0.5 ML SYG IV PRN ×7 (00:10→22:08)
[2019-02-20] MEDS: HYDROCODONE/APAP (5/325) TAB PO PRN ×2 (05:56→10:41)
[2019-02-20] MEDS: METHOCARBAMOL 500 MG TAB PO PRN ×2 (06:34→14:53)
[2019-02-20 07:31] VITALS: BP 96/55; PULSE 61; RESP 18
--- NOTE | 2019-02-20 08:06 | CONS ---
Assessment/Plan Assessment/Plan Assessment/Plan (Daily) 1. Stable post op with inc mobility and less back pain. 2. Potential dc today per ortho and PT Consultation Date/Type/Reason Admit Date/Time Feb 17, 2019 at 05:45 Initial Consult Date 02/17/19 Requesting Provider: JESSICA DIXON MD Date/Time of Note DATE: 02/20/19 TIME: 08:04 Detailed Summary Respiratory: No shortness of breath Cardiovascular: No chest pain, No orthopenea Gastrointestinal: no complaints, constipation, other Genitourinary: no complaints Musculoskeletal: back pain (is less) Exam/Review of Systems Exam Vitals Vital Signs Date Temp Pulse Resp B/P (MAP) Pulse Ox O2 O2 Flow FiO2 Time Delivery Rate 02/20/19 97.8 61 18 96/55 (69) 98 Room Air 07:31 02/17/19 2.0 18:08 Intake and Output 02/19/19 02/19/19 02/20/19 1414:59 22:59 06:59 IntakeIntake Total 440 ml 500 ml 520 ml OutputOutput Total 10 ml BalanceBalance 440 ml 490 ml 520 ml Neck: No jvd Respiratory: clear to auscultation Cardiovascular: regular rate and rhythm Gastrointestinal: soft Extremities: No calf tenderness, No edema Results Result Diagram: 02/19/1944002/19/19440 Medications Medication Current Medications Acetaminophen/ Hydrocodone Bitart ([place] (5/325)) 1 tab Q4H PRN PO .PAIN 1-5; Start 02/17/19 at 11:00 Acetaminophen/ Hydrocodone Bitart ([place] (5/325)) 2 tab Q4H PRN PO .PAIN 6-10 Last administered on 02/20/19at 05:56; Admin Dose 2 TAB; Start 02/17/19 at 11:00 Prochlorperazine (Compazine) 10 mg Q4H PRN PO NAUSEA/VOMITING Last administered on 02/17/19at 19:48; Admin Dose 10 MG; Start 02/17/19 at 11:00 Ondansetron HCl (Zofran Inj) 4 mg Q6H PRN IV NAUSEA/VOMITING Last administered on 02/19/19at 22:40; Admin Dose 4 MG; Start 02/17/19 at 11:00 Al Hydrox/Mg Hydrox/Simethicone (Mag-Al Plus) 15 ml Q4H PRN PO .CONSTIPATION Last administered on 02/19/19 20:44; Admin Dose 15 ML; Start 02/17/19 at 11:00 Docusate Sodium (Colace) 100 mg BID PO Last administered on 02/19/19 20:38; Admin Dose 100 MG; Start 02/18/19 at 09:00 Acetaminophen (Tylenol Tab) 650 mg Q4H PRN PO TEMP GREATER THAN 101F OR YOUNG Last administered on 02/17/19 17:03; Admin Dose 650 MG; Start 02/17/19 at 11:00 IV Flush (NS 3 ml) 3 ml PER PROTOCOL IV ; Start 02/17/19 at 11:00 Naloxone HCl (Narcan) 0.2 mg Q2M PRN IV RR 8 BREATHS/MIN OR LESS; Start 02/17/19 at 11:00 Hydromorphone HCl (Dilaudid) 0.5 mg Q3H PRN IV SEVERE PAIN LEVEL 7-10 Last administered on 02/20/19 04:26; Admin Dose 0.5 MG; Start 02/17/19 at 11:00 Methocarbamol (Robaxin) 500 mg Q8H PRN PO MUSCLE SPASMS Last administered on 02/20/19 06:34; Admin Dose 500 MG; Start 02/19/19 at 13:00 Zolpidem Tartrate (Ambien) 5 mg HS MAY REPEAT X 1 PRN PO INSOMNIA Last admi nistered on 02/19/19 23:37; Admin Dose 5 MG; Start 02/19/19 at 23:30 TIAGO FARMER MD Feb 20, 2019 08:06
[2019-02-20] MEDS: DOCUSATE SODIUM 100 MG CAP PO SCH ×2 (08:11→20:27)
--- NOTE | 2019-02-20 11:58 | CONS ---
Consultation Date/Type/Reason Admit Date/Time Feb 17, 2019 at 05:45 Initial Consult Date 02/17/19 Requesting Provider: JESSICA DIXON MD Date/Time of Note DATE: 02/20/19 TIME: 11:56 24 HR Interval Summary Free Text/Dictation S: 48 yo F POD#3 s/p L2-3 decompression for spinal stenosis above prior fusion. Reports improvement in pain and weakness. Working well with PT who has recommened 1 more day of PT prior to DC. Lumbar MRI does not show e/o stenosis. She is tolerating a regular diet. Drain w/ minimal output. O: Vital Signs Date Temp Pulse Resp B/P (MAP) Pulse Ox O2 O2 Flow FiO2 Time Delivery Rate 02/20/19 97.8 61 18 96/55 (69) 98 Room Air 07:31 Gen: AAOx3, NAD Spine: Dressing C/D/I, 4/5 b/l TA/GS/EHL, 4/5 b/l HF and KE, mild decreased sensation in left compared to right leg. A/P:48 yo F POD#3 s/p L2-3 decompression for spinal stenosis above prior fusion 1. Encourage pain control w/ PO meds 2. Continue PT and d/c home [place] 3. Appreciate medicine recs Exam/Review of Systems Exam Vitals Vital Signs Date Temp Pulse Resp B/P (MAP) Pulse Ox O2 O2 Flow FiO2 Time Delivery Rate 02/20/19 97.8 61 18 96/55 (69) 98 Room Air 07:31 02/17/19 2.0 18:08 Intake and Output 02/19/19 02/19/19 02/20/19 1515:00 23:00 07:00 IntakeIntake Total 440 ml 500 ml 520 ml OutputOutput Total 10 ml BalanceBalance 440 ml 490 ml 520 ml Results Result Diagram: 02/19/1944002/19/19440 Medications Medication Current Medications Acetaminophen/ Hydrocodone Bitart ([place] (5/325)) 1 tab Q4H PRN PO .PAIN 1-5; Start 02/17/19 at 11:00 Acetaminophen/ Hydrocodone Bitart ([place] (5/325)) 2 tab Q4H PRN PO .PAIN 6-10 Last administered on 02/20/19at 10:41; Admin Dose 2 TAB; Start 02/17/19 at 11:00 Prochlorperazine (Compazine) 10 mg Q4H PRN PO NAUSEA/VOMITING Last administered on 02/17/19 19:48; Admin Dose 10 MG; Start 02/17/19 at 11:00 Ondansetron HCl (Zofran Inj) 4 mg Q6H PRN IV NAUSEA/VOMITING Last administered on 02/19/19 22:40; Admin Dose 4 MG; Start 02/17/19 at 11:00 Al Hydrox/Mg Hydrox/Simethicone (Mag-Al Plus) 15 ml Q4H PRN PO .CONSTIPATION Last administered on 02/19/19 20:44; Admin Dose 15 ML; Start 02/17/19 at 11:00 Docusate Sodium (Colace) 100 mg BID PO Last administered on 02/20/19 08:11; Admin Dose 100 MG; Start 02/18/19 at 09:00 Acetaminophen (Tylenol Tab) 650 mg Q4H PRN PO TEMP GREATER THAN 101F OR YOUNG Last administered on 02/17/19 17:03; Admin Dose 650 MG; Start 02/17/19 at 11:00 IV Flush (NS 3 ml) 3 ml PER PROTOCOL IV ; Start 02/17/19 at 11:00 Naloxone HCl (Narcan) 0.2 mg Q2M PRN IV RR 8 BREATHS/MIN OR LESS; Start 02/17/19 at 11:00 Hydromorphone HCl (Dilaudid) 0.5 mg Q3H PRN IV SEVERE PAIN LEVEL 7-10 Last administered on 02/20/19 08:11; Admin Dose 0.5 MG; Start 02/17/19 at 11:00 Methocarbamol (Robaxin) 500 mg Q8H PRN PO MUSCLE SPASMS Last administered on 02/20/19 06:34; Admin Dose 500 MG; Start 02/19/19 at 13:00 Zolpidem Tartrate (Ambien) 5 mg HS MAY REPEAT X 1 PRN PO INSOMNIA Last administered on 02/19/19 23:37; Admin Dose 5 MG; Start 02/19/19 at 23:30 JESSICA DIXON MD Feb 20, 2019 11:58
[2019-02-20] MEDS ORDERED: OXYCODONE/ACETAMINOPHEN (5/325) TAB PO PRN (12:30)
[2019-02-20 14:00] VITALS: BP 99/58; PULSE 68; RESP 18
[2019-02-20] MEDS: PANTOPRAZOLE (EC) 40 MG TAB PO SCH (14:53)
[2019-02-20] MEDS: OXYCODONE/ACETAMINOPHEN (5/325) TAB PO PRN ×2 (16:22→20:30)
[2019-02-20] MEDS: AL HYDROX/MG HYDROX/SIMETH 30 ML CUP PO PRN (17:48)
[2019-02-20 20:01] VITALS: BP 108/57; PULSE 50; RESP 20
[2019-02-20] MEDS: ONDANSETRON 4 MG INJ IV PRN (20:53)
[2019-02-20] MEDS: ZOLPIDEM 5 MG TAB PO PRN (22:09)
[2019-02-21] MEDS: HYDROmorphONE 0.5 MG/0.5 ML SYG IV PRN ×2 (05:36→10:24)
[2019-02-21] MEDS: PANTOPRAZOLE (EC) 40 MG TAB PO SCH (05:36)
[2019-02-21 07:37] VITALS: BP 91/52; PULSE 53; RESP 18
--- NOTE | 2019-02-21 08:26 | CONS ---
Assessment/Plan Assessment/Plan Assessment/Plan (Daily) 1. Post op lumbar back surgery with now less pain 2. OK to dc per ortho and PT Consultation Date/Type/Reason Admit Date/Time Feb 17, 2019 at 05:45 Initial Consult Date 02/17/19 Requesting Provider: JESSICA DIXON MD Date/Time of Note DATE: 02/21/19 TIME: 08:24 Detailed Summary Cardiovascular: No chest pain, No lightheadedness, No orthopenea, No palpitations Gastrointestinal: constipation Genitourinary: no complaints Musculoskeletal: back pain (is less) Exam/Review of Systems Exam Vitals Vital Signs Date Temp Pulse Resp B/P (MAP) Pulse Ox O2 O2 Flow FiO2 Time Delivery Rate 02/21/19 98.3 53 18 91/52 (65) 98 07:37 02/20/19 Room Air 20:01 02/17/19 2.0 18:08 Intake and Output 02/20/19 02/20/19 02/21/19 1414:59 22:59 06:59 IntakeIntake Total 200 ml 350 ml 400 ml OutputOutput Total 20 ml BalanceBalance 180 ml 350 ml 400 ml Neck: No jvd Respiratory: clear to auscultation Cardiovascular: regular rate and rhythm Gastrointestinal: soft Extremities: No calf tenderness, No edema Results Result Diagram: 02/19/1944002/19/19440 Medications Medication Current Medications Prochlorperazine (Compazine) 10 mg Q4H PRN PO NAUSEA/VOMITING Last administered on 02/17/19at 19:48; Admin Dose 10 MG; Start 02/17/19 at 11:00 Ondansetron HCl (Zofran Inj) 4 mg Q6H PRN IV NAUSEA/VOMITING Last administered on 02/20/19at 20:53; Admin Dose 4 MG; Start 02/17/19 at 11:00 Al Hydrox/Mg Hydrox/Simethicone (Mag-Al Plus) 15 ml Q4H PRN PO .CONSTIPATION Last administered on 02/20/19at 17:48; Admin Dose 15 ML; Start 02/17/19 at 11:00 Docusate Sodium (Colace) 100 mg BID PO Last administered on 02/20/19at 20:27; Admin Dose 100 MG; Start 02/18/19 at 09:00 Acetaminophen (Tylenol Tab) 650 mg Q4H PRN PO TEMP GREATER THAN 101F OR YOUNG Last administered on 02/17/19 17:03; Admin Dose 650 MG; Start 02/17/19 at 11:00 IV Flush (NS 3 ml) 3 ml PER PROTOCOL IV ; Start 02/17/19 at 11:00 Naloxone HCl (Narcan) 0.2 mg Q2M PRN IV RR 8 BREATHS/MIN OR LESS; Start 02/17/19 at 11:00 Hydromorphone HCl (Dilaudid) 0.5 mg Q3H PRN IV SEVERE PAIN LEVEL 7-10 Last administered on 02/21/19 05:36; Admin Dose 0.5 MG; Start 02/17/19 at 11:00 Methocarbamol (Robaxin) 500 mg Q8H PRN PO MUSCLE SPASMS Last administered on 02/20/19 14:53; Admin Dose 500 MG; Start 02/19/19 at 13:00 Zolpidem Tartrate (Ambien) 5 mg HS MAY REPEAT X 1 PRN PO INSOMNIA Last administered on 02/20/19 22:09; Admin Dose 5 MG; Start 02/19/19 at 23:30 Oxycodone/ Acetaminophen (Percocet (5/ 325)) 1 tab Q4H PRN PO MODERATE PAIN LEVEL 4-6; Start 02/20/19 at 12:30 Oxycodone/ Acetaminophen (Percocet (5/ 325)) 2 tab Q4H PRN PO PAIN LEVEL 7-10 Last administered on 02/20/19 20:30; Admin Dose 2 TAB; Start 02/20/19 at 12:30 Pantoprazole (Protonix Tab) 40 mg DAILY@06 PO Last administered on 02/21/19 05:36; Admin Dose 40 MG; Start 02/20/19 at 12:30 TIAGO FARMER MD Feb 21, 2019 08:26
[2019-02-21] MEDS: METHOCARBAMOL 500 MG TAB PO PRN (08:58)
[2019-02-21] MEDS: DOCUSATE SODIUM 100 MG CAP PO SCH (08:58)
[2019-02-21] MEDS: OXYCODONE/ACETAMINOPHEN (5/325) TAB PO PRN ×2 (09:00→13:20)
[2019-02-21 14:25] VITALS: BP 108/59; PULSE 54; RESP 18
[2019-02-21] MEDS: AL HYDROX/MG HYDROX/SIMETH 30 ML CUP PO PRN (14:30)
== END 2019-02-21 14:51 | disposition home or self-care (01) | DRG 520 ==
LOC: REC 05:45 → MS1 12:03
PROVIDERS: ADMIT Orthopaedic Surgery; ATTEND Orthopaedic Surgery
PROC: 01NB0ZZ Release Lumbar Nerve, Open Approach (ICD-10-PCS; 2019-02-17)
PROC: 0SB20ZZ Excision of Lumbar Vertebral Disc, Open Approach (ICD-10-PCS; principal; 2019-02-17 07:30)
DX: M48.062 Spinal stenosis, lumbar region with neurogenic claudication (principal); M51.16 Intervertebral disc disorders with radiculopathy, lumbar region; Z98.1 Arthrodesis status; G89.29 Other chronic pain; Z90.710 Acquired absence of both cervix and uterus; Z87.891 Personal history of nicotine dependence; R35.0 Frequency of micturition
CPT/HCPCS: 72110; 72158; 80048; 83735; 84100; 85014; 85018; 85025; 86703; 86803; 86900; 86901; 87340; 88304; 97110; 97116; 97162; 97530; J0360; J0690; J1100; J1170; J2175; J2250; J2270; J2405; J2710; J2765; J3010; J7030; J7120